=== PATIENT | male | born 2000 | race Asian ===

== ENCOUNTER 2024-07-18 17:10 | Emergency (ER) | payer OTHER, SELFPAY ==
[2024-07-18 17:13] VITALS: BP 138/62; PULSE 122; RESP 20; TEMP 37; O2SAT 96; BMI 24.4
--- NOTE | 2024-07-18 17:26 | ED.GENADULT ---
HPI - General Adult General Time Seen by Provider: 17:27 Date Seen: 07/18/24 Chief complaint: Unspecified Complaint, Adult Stated complaint: Anxiety, swallowed flashlight Time Seen by Provider: 07/18/24 17:13 Source: patient and RN notes reviewed Mode of arrival: ambulatory Limitations: no limitations History of Present Illness HPI narrative: This 23-year-old male is ambulatory into the ED of his own accord for concern of ingestion of a flashlight. Told nursing staff that he just had it in his mouth come was curious last night and ended up swallowing it. Nursing staff did press the patient any admitted to ingesting foreign objects about 4 times a year. He has ingested other metal objects in the past. Since ingesting this last night, he is anxious. He notes it was about a 1.3 in battery powered flashlight with a ring for a nicolas chain. He thinks it was an alcohol in battery. He denies any difficulty swallowing, no chest pain, no abdominal pain, no nausea or vomiting, no fevers or chills. He did report to nursing staff that he had been sick with some cough and cold symptoms/flu symptoms for few days. Related Data Home Medications ?Medication ?Instructions ?Recorded ?Confirmed levetiracetam 500 mg tablet 250 mg PO BID 07/18/24 07/18/24 (Keppra) Allergies Allergy/AdvReac Type Severity Reaction Status Date / Time No Known Drug Allergies Allergy Verified 07/18/24 17:20 Review of Systems Status of ROS: Reports: 6 or more systems reviewed and unremarkable except as noted in History and below PFSH PFS Social History Smoking Status: Never smoker Do you use any of these nicotine containing products: None Second hand tobacco smoke exposure: No How often do you have a drink containing alcohol: never How often do you have six or more drinks on one occasion: Never AUDIT-C Alcohol total score: 0 Non-prescribed substance use: denies use service: No Exam Const: Vital Signs, click to edit/add: Vital Signs - 24 hr 07/18/24 17:13 Temperature 98.6 F Pulse Rate [Pulse Oximeter] 122 H Respiratory Rate 20 Blood Pressure [Ri ght Upper Arm] 138/62 Pulse Oximetry 96 Oxygen Delivery Me thod Room Air Patient is seen in exam room 1, he is alert, interactive, anxious. He does have good eye contact. Sclera clear, symmetrical facial function. Neck is supple, no adenopathy or masses. Lungs are clear, good air entry, wheeze or crackles. CV is fast irregular, no murmur, normal S1-S2. Abdomen is soft, nontender, nondistended, no organomegaly or masses noted. Documenting provider has reviewed patient's vital signs: yes Course Course ED Course: Reviewed with patient that we will do imaging, will look at both a picture of his chest and abdomen just to ensure no foreign body or find out exactly with the foreign body is and what the object appears to look like on imaging. Reevaluation(s) Time of Reevaluation #1: 18:47 Reevaluation #1: Reviewed with patient his x-ray report and provided a copy. We reviewed that there is no evidence of any concerning change and he has no abdominal pain, no pain on examination. He did admit that he historically has swallowed objects, is trying to cut down on his own. This is the 1st time he has ever come in. I did review with him that there is psychiatric disorder were people have a compulsion to swallow objects. Is unclear if he is interested in seeking further evaluation or care for this but he is urged to follow up in clinic, would recommend that psychiatry referral be considered. Discussed signs and symptoms for return. Discussed the need to of ingestion and how it certainly can be unsafe. These do look like lithium batteries but they are encapsulated, this hopefully will pass without any problem. Vital Signs Vital signs: Initial Vital Signs Temperature 98.6 F 07/18/24 17:13 Temperature Source Oral 07/18/24 17:13 Pulse Rate 122 H 07/18/24 17:13 Respiratory Rate 20 07/18/24 17:13 Blood Pressure 138/62 07/18/24 17:13 Blood Pressure Mean 87 07/18/24 17:13 Blood Pressure Position Sitting 07/18/24 17:13 Pulse Oximetry 96 07/18/24 17:13 Oxygen Delivery Method Room Air 07/18/24 17:13 Vital Signs Temperature 98.6 F 07/18/24 17:13 Pulse Rate 122 H 07/18/24 17:13 Respiratory Rate 20 07/18/24 17:13 Blood Pressure 138/62 07/18/24 17:13 Pulse Oximetry 96 07/18/24 17:13 Oxygen Delivery Method Room Air 07/18/24 17:13 Temperature 98.6 F 07/18/24 17:13 Pulse Rate 122 H 07/18/24 17:13 Respiratory Rate 20 07/18/24 17:13 Blood Pressure 138/62 07/18/24 17:13 Pulse Oximetry 96 07/18/24 17:13 Oxygen Delivery Method Room Air 07/18/24 17:13 Medical Decision Making Imaging Data Chest x-ray: Attestation: I have reviewed the pertinent imaging results. My impression: Can see the flashlight with 3 small circular batteries, likely lithium, encased in the flashlight. Position of a flashlight on the one-view abdominal imaging looks probable distal small-bowel verses colon, did subsequently speak with Radiology home agreed with this. Radiologist's impression: Patient: SEYMOUR MARCUS Facility:?[facility] Patient ID:?[id number] Site Patient ID:?[id number]. Site :?[id number] Study:?XRay-Abdomen 1 view-07/18/2024 5:47:24 PM Ordering Physician:?Sammie Flores Final Report: Indication: Abdomen pain. Technique: Abdomen 1 view. Comparison: None. Findings/Impression: There is a metallic foreign body identified in the pelvis. The exact location of this is difficult to ascertain given single projection. Could be within the rectum or small bowel. The object appears to have probably 3 small coin batteries within it and a loop at the proximal end, probably a small flashlight. Otherwise, normal bowel gas pattern and colonic stool volume. Osseous structures are unremarkable. Dictated by Baltazar Gutiérrez MD @ 07/18/2024 6:21:23 PM (Electronic Signature) Discharge Plan Discharge Clinical Impression: Ingestion of foreign body Qualifiers: Encounter type: initial encounter Qualified Code(s): T18.9XXA - Foreign body of alimentary tract, part unspecified, initial encounter Patient Disposition: Home, Self-Care Condition: Stable Instructions: Foreign Body Ingestion (ED) Additional Instructions: Need to follow up in clinic next Monday or Monday, need abdomen x-ray repeated to ensure that the flashlight has exited if you haven't seen it in your stool. Need to also talk to the provider about history or ingestions. Recommend referral to psychiatry for deliberate foreign body ingestion. If you develop abdominal pain, have fever or vomiting with abdominal pain in the setting of the foreign body still in your abdomen, need to seek re-evaluation. Activity Level: Activity as Tolerated Prescriptions: No Action levetiracetam [Keppra] 500 mg tablet 250 mg PO BID Follow Up/Referrals: Provider,Not a Local [Primary Care Provider] - Stand Alone Forms: [employer] Info Instructions
--- NOTE | 2024-07-18 17:27 | CRLHL7_ITS ---
For Patients: As a result of the Century Cures Act, medical imaging exams and procedure reports are released immediately into your electronic medical record. You may view this report before your referring provider. If you have questions, please contact your health care provider. Indication: Abdomen pain. Technique: Abdomen 1 view. Comparison: None. Findings/Impression: There is a metallic foreign body identified in the pelvis. The exact location of this is difficult to ascertain given single projection. Could be within the rectum or small bowel. The object appears to have probably 3 small coin batteries within it and a loop at the proximal end, probably a small flashlight. Otherwise, normal bowel gas pattern and colonic stool volume. Osseous structures are unremarkable. Dictated by Baltazar Gutiérrez MD @ 07/18/2024 6:21:23 PM (Electronically Signed)
[2024-07-18 19:04] VITALS: PULSE 88; RESP 24; O2SAT 98
== END 2024-07-18 19:06 | disposition home or self-care (01) ==
PROVIDERS: Emergency Provider Family Medicine
DX: T18.9XXA Foreign body of alimentary tract, part unspecified, initial encounter (principal)
CPT/HCPCS: 74018; 99283